=== PATIENT | male | born 1990 | race Caucasian/White ===

== ENCOUNTER → 2019-08-07 | Outpatient (RCR) | payer BC, OTHER | LOC: PT 07-25 16:20 | PROVIDERS: ATTEND Specialist | DX: S83.512A Sprain of anterior cruciate ligament of left knee, initial encounter (principal) ==

== ENCOUNTER 2019-08-16 13:11 | Outpatient (RCR) | payer BC, OTHER | END 2019-09-07 | LOC: PT 13:11 | PROVIDERS: ATTEND Specialist | DX: S83.512A Sprain of anterior cruciate ligament of left knee, initial encounter (principal); M25.562 Pain in left knee; M62.81 Muscle weakness (generalized) ==